=== PATIENT | female | born 1990 | race Hispanic/Latino ===

== ENCOUNTER 2018-08-23 19:09 | Day surgery (SDC) | payer OTHER ==
[2018-08-23 19:25] VITALS: BP 111/56; TEMP 98.4; BMI 24.2
--- NOTE | 2018-08-23 19:49 | PDOC.LDHP ---
Labor and Delivery H&P HPI: Patient of Dr Christian Here for irregular CTX EGA: 37 weeks 27 yo at early term with irregular CTX. No ROM, no VB, good FM. Was 1cm last week. Review of Systems: complete ROS completed and negative as per HPI Current gestational age (weeks): 37 (1 days) Grav: 2 Para: 1 OB History Details: x1 Current complications: none Abnormal US findings: No Current medications: pre-susanne vitamins Previous surgical history: none Allergies/Adverse Reactions: Allergies Allergy/AdvReac Type Severity Reaction Status Date / Time No Known Allergies Allergy Unverified 06/18/15 23:21 Social history: none - Physical Exam Vital signs reviewed and normal: yes (BP111/56) General: NAD Heart: RRR Lungs: CTAB Abdomen: gravid Extremeties: no edema FHT: category 1 Ronan contractions every: one ctc in 15 min - Vaginal Exam cm dilated: 1 Effacement: 50% Station: -1 - Assessment Threatened labor at early term, no change from last MD exam last week - Plan Plan: observation in L&D, other (NST reactive; no evidence ROM; normotension; ok for outpatient follow up)
== END 2018-08-23 20:20 | disposition home health service (06) ==
LOC: L&D/OP 19:09
PROVIDERS: ATTEND Obstetrics & Gynecology
DX: O47.1 False labor at or after 37 completed weeks of gestation (principal); Z3A.37 37 weeks gestation of pregnancy
CPT/HCPCS: 99282

== ENCOUNTER 2018-09-08 08:35 | Inpatient (IN) | payer OTHER ==
[2018-09-08 09:30] VITALS: BMI 26.1
[2018-09-08] MEDS ORDERED: Fentanyl 4 mcg/Bup 0.1% Cadd 100 ML ONE (09:49)
[2018-09-08] MEDS: Lactated Ringer's 1,000 ML IV SCH ×2 (09:57→10:40)
[2018-09-08] MEDS ORDERED: Lidocaine 1% (PF) 30 ML VIAL SC PRN (10:18)
[2018-09-08] MEDS ORDERED: Acetaminophen 500 MG TAB PO PRN (10:18)
[2018-09-08] MEDS ORDERED: Zolpidem Tartrate 5 MG TAB PO PRN (10:18)
[2018-09-08] MEDS ORDERED: Ondansetron PF 4 MG/2 ML Vial IVP PRN ×3 (10:18→19:53)
[2018-09-08] MEDS ORDERED: Carboprost 250 MCG/ML AMP IM PRN (10:18)
[2018-09-08] MEDS ORDERED: Misoprostol 200 MCG TAB PR PRN (10:18)
[2018-09-08] MEDS ORDERED: Methylergonovine 0.2 MG/ML VIAL IM PRN (10:18)
[2018-09-08] MEDS ORDERED: Ibuprofen 800 MG TAB PO PRN (10:18)
[2018-09-08] MEDS ORDERED: HYDROcodone/Acetaminophen 5/325 mg Tablet PO PRN ×4 (10:18→19:53)
[2018-09-08] MEDS ORDERED: Diphenoxylate HCl/Atropine Tablet PO PRN ×2 (10:18)
[2018-09-08] MEDS ORDERED: Butorphanol Tartrate 1 MG/ML VIAL SLOW IVP PRN (10:18)
[2018-09-08] MEDS ORDERED: Promethazine HCl 25 MG/ML VIAL IM PRN ×3 (10:18→19:53)
[2018-09-08] MEDS ORDERED: Butorphanol Tartrate 1 MG/ML VIAL ONE (10:22)
--- NOTE | 2018-09-08 10:23 | PDOC.LDHP ---
Labor and Delivery H&P Chief complaint: contractions HPI: 27 y/o at 39w4d, patient of Dr. Christian, presents with ctx since 0600 this morning. Denies VB, LOF, or decreased FM. ROS neg for HEENT, cv, pulm, gi, gu, neuro, psych, skin, musculoskeletal or constitutional symptoms other than mentioned above. OB History Details: Prior Current complications: other (HSV) Past Medical History: HSV Current medications: pre-susanne vitamins, other (valtrex) Previous surgical history: none Allergies/Adverse Reactions: Allergies Allergy/AdvReac Type Severity Reaction Status Date / Time No Known Allergies Allergy Verified 09/08/18 09:25 Social history: none - Physical Exam Vital signs reviewed and normal: yes General: NAD, resting Lungs: nonlabored breathing Abdomen: gravid Extremeties: no edema FHT: category 1 (140s, mod variability, + accels, no decels) [place] contractions every: q 5 mins - Vaginal Exam cm dilated: 5 Effacement: 90% Station: -1 - OB Labs Blood type: O RH: positive Antibody Screen: negative HIV: negative RPR: negative HEPSAg: negative 1 hour GCT: negative GBS: positive - Assessment L&D Assessment: term patient in labor - Plan Plan: admit to L&D, labor augmentation if indicated, GBS antibiotic prophylaxis , informed consent obtained, anesthesia consult for pain management (if desired)
[2018-09-08] MEDS ORDERED: Penicillin G Potassium 5 MILL.UNITS in Sodium Chloride 0.9% 100 ML IVPB SCH (10:30)
[2018-09-08 10:36] LABS: Hemoglobin 12.9 g/dL (12.0-16.0); Mean Corpuscular HGB CONC 31.4 g/dL (32.0-36.0); Mean Corpuscular Hemoglobin 28.3 pg (27.0-31.0); Mean Corpuscular Volume 90.2 fL (78.0-98.0); Mean Platelet Volume 8.7 fL (7.4-10.4); Platelet Count 183 thou/uL (130-400); RBC Distribution Width 15.2 % (11.5-14.5); Red Blood Cell (RBC) Count 4.55 mill/uL (4.20-5.40); White Blood Cell (WBC) Count 8.6 thou/uL (4.8-10.8)
[2018-09-08 11:05] LABS: Syphilis Antibody Nonreactive (Nonreactive); Syphilis Antibody Index 0.02 S/CO (<1.00 Non-Reactive)
[2018-09-08 11:06] LABS: HBSAg Index 0.26 S/CO (0-0.99); Hep B Surf Ag Non-Reactive S/CO (NonReactive)
[2018-09-08] MEDS ORDERED: Eucerin (Mineral Oil/Petrolatum,White) 30 gm Jar TOP PRN (13:14)
[2018-09-08] MEDS ORDERED: diphenhydrAMINE 50 MG/ML VIAL IVP PRN (13:14)
[2018-09-08] MEDS ORDERED: Lactated Ringer's 500 ML IV PRN (13:14)
[2018-09-08] MEDS ORDERED: Acetaminophen 325 MG TAB PO PRN (13:14)
[2018-09-08] MEDS ORDERED: ePHEDrine/0.9% NaCl/PF SYRINGE 50 mg/10 ml SLOW IVP PRN (13:14)
[2018-09-08] MEDS ORDERED: Naloxone HCl 0.4 mg/ml Vial IVP PRN ×2 (13:14)
[2018-09-08] MEDS ORDERED: Penicillin G 2.5 MILL.units 50 ML ONE (13:15)
[2018-09-08] MEDS ORDERED: Communication Order-Pharmacy FS SCH (13:15)
[2018-09-08] MEDS ORDERED: Fentanyl 4 mcg/Bupivacaine 0.1% Cassette 100 ML EPIDURAL SCH (13:15)
[2018-09-08] MEDS: NS / Oxytocin 40 units/1000ml 1,000 ML IV PRN ×2 (16:17→18:24)
--- NOTE | 2018-09-08 16:29 | PDOC.OPDEL ---
OB Operative/Delivery Note Delivery Dr/Surgeon: Gino Pre-Delivery Diagnosis: active labor Procedure/Post Delivery Dx: spontaneous vaginal delivery Weeks gestation: 39 Anesthesia: epidural - Findings A Sex: female - Additional Findings/Plan Placenta delivered: spontaneous Repaired Obstetrical Laceration: left labial Estimated blood loss: 165ml Compilations/Other Findings: no HSV lesions on admit exam, membranes intact until approx 5 mins prior to delivery Post delivery plan: routine recovery
[2018-09-08] MEDS ORDERED: Penicillin G 2.5 MILL.units 2.5 MILL.UNITS in Premix Bag 1 BAG IVPB SCH (17:00)
[2018-09-08] MEDS ORDERED: Milk Of Magnesia 30 ML UDCUP PO PRN (19:53)
[2018-09-08] MEDS ORDERED: Bisacodyl 10 MG SUPP PR PRN (19:53)
[2018-09-08] MEDS ORDERED: Lanolin Ointment 7 GM TUBE TOP PRN (19:53)
[2018-09-08] MEDS ORDERED: NS / Oxytocin 40 units/1000ml 1,000 ML IV SCH (19:53)
[2018-09-08] MEDS ORDERED: Benzocaine/Menthol 20-0.5% 60 ML CAN TOP PRN (19:53)
[2018-09-08] MEDS: Docusate Calcium (SURFAK) 240 MG CAP PO SCH (21:25)
[2018-09-08] MEDS: Ibuprofen 800 MG TAB PO SCH (23:36)
[2018-09-09] MEDS: Ibuprofen 800 MG TAB PO SCH ×3 (02:13→18:20)
[2018-09-09 05:37] LABS: Hemoglobin 11.8 g/dL (12.0-16.0); Mean Corpuscular HGB CONC 32.4 g/dL (32.0-36.0); Mean Corpuscular Hemoglobin 29.3 pg (27.0-31.0); Mean Corpuscular Volume 90.6 fL (78.0-98.0); Mean Platelet Volume 8.9 fL (7.4-10.4); Platelet Count 158 thou/uL (130-400); Red Blood Cell (RBC) Count 4.02 mill/uL (4.20-5.40); White Blood Cell (WBC) Count 10.5 thou/uL (4.8-10.8)
[2018-09-09] MEDS ORDERED: Adacel (T-DAP) 0.5 ML VIAL IM ONE (09:00)
[2018-09-09] MEDS: Docusate Calcium (SURFAK) 240 MG CAP PO SCH ×2 (09:27→21:57)
[2018-09-09] MEDS: Ferrous Sulfate 325 MG TAB PO SCH ×2 (09:27→18:20)
[2018-09-09] MEDS: Prenatal Vitamin 1 TAB PO SCH (09:27)
[2018-09-09] MEDS ORDERED: Lidocaine 2% MPF 10 ML AMP (For Epidural Use) ONE (09:53)
[2018-09-09] MEDS ORDERED: ePHEDrine/0.9% NaCl/PF SYRINGE 50 mg/10 ml ONE (09:53)
--- NOTE | 2018-09-09 10:15 | PDOC.PP ---
Post Progress Note Post Day #: 1 Subjective: Doing well, nursing well, min normal lochia PO intake tolerated: yes Flatus: yes Ambulation: yes Vital Signs (12 hours) Temp Pulse Resp BP Pulse Ox 09/09/18 08:55 98.3 F 66 18 115/66 97 09/09/18 05:32 97.9 F 68 18 112/55 L 98 Weight Weight 162 lb - Physical Examination General: NAD Respiratory: non-labored breathing Abdominal: no distention Fundus firm & at: below umb Extremities: negative homans (B) Skin: no rash Neurological: no gross focal deficits Psychiatric: A&Ox3, normal affect Result Diagrams: 09/09/18 05:07 Additional Labs: Post Labs Blood Type O POSITIVE 09/08/18 10:12 Hep Bs Antigen Non-Reactive S/CO (NonReactive) 09/08/18 10:12 (1) Vaginal delivery Code(s): O80 - ENCOUNTER FOR FULL-TERM UNCOMPLICATED DELIVERY Status: Acute (2) 39 weeks gestation of Code(s): Z3A.39 - 39 WEEKS GESTATION OF Status: Acute - Assessment/Plan PPD1 sp following active labor. Plan for DC tomorrow for observation of w hx of maternal HSV.
[2018-09-10] MEDS: Ibuprofen 800 MG TAB PO SCH (01:55)
--- NOTE | 2018-09-10 06:19 | PDOC.PP ---
Post Progress Note Post Day #: 2 Subjective: Doing well. states baby is well PO intake tolerated: yes Flatus: yes Ambulation: yes Vital Signs (12 hours) Temp Pulse Resp BP Pulse Ox 09/09/18 20:13 98.3 F 68 18 122/71 99 Weight Weight 162 lb Past 24 hour vitals reviewed...all wnl - Physical Examination General: NAD Cardiovascular: no m/r/g, RRR Respiratory: clear to auscultation bilaterally Abdominal: + bowel sounds, lochia, no distention, appropriately TTP Extremities: negative homans (B) Neurological: no gross focal deficits Psychiatric: A&Ox3, normal affect Result Diagrams: 09/09/18 05:07 Additional Labs: Post Labs Blood Type O POSITIVE 09/08/18 10:12 Hep Bs Antigen Non-Reactive S/CO (NonReactive) 09/08/18 10:12 (1) 39 weeks gestation of Code(s): Z3A.39 - 39 WEEKS GESTATION OF Status: Acute (2) Vaginal delivery Code(s): O80 - ENCOUNTER FOR FULL-TERM UNCOMPLICATED DELIVERY Status: Acute - Assessment/Plan PPD2 doing well. HX HSV with no clinical outbreak this admission. OK for DC to home later this AM/noon.
[2018-09-10] MEDS: Ferrous Sulfate 325 MG TAB PO SCH (07:56)
[2018-09-10 08:08] VITALS: BP 108/64; TEMP 97.5
[2018-09-10] MEDS: Docusate Calcium (SURFAK) 240 MG CAP PO SCH (09:03)
[2018-09-10] MEDS: Prenatal Vitamin 1 TAB PO SCH (09:03)
== END 2018-09-10 12:30 | disposition home or self-care (01) | DRG 807 ==
LOC: L&D/OP 08:35 → L&D 10:14 → 3SW 19:48
PROVIDERS: ADMIT Obstetrics & Gynecology; ATTEND Obstetrics & Gynecology
PROC: 10E0XZZ Delivery of Products of Conception, External Approach (ICD-10-PCS; principal; 2018-09-08)
PROC: 0HQ9XZZ Repair Perineum Skin, External Approach (ICD-10-PCS; 2018-09-08)
DX: O98.52 Other viral diseases complicating childbirth (principal); Z37.0 Single live birth; B00.9 Herpesviral infection, unspecified; Z3A.39 39 weeks gestation of pregnancy; O99.824 Streptococcus B carrier state complicating childbirth; O70.0 First degree perineal laceration during delivery
CPT/HCPCS: 36415; 51702; 85027; 86780; 86850; 86900; 86901; 87340; 99285; J0595; J2001; J2540